=== PATIENT | female | born 1955 | race Caucasian/White ===

== ENCOUNTER 2017-01-11 20:30 | Emergency (ER) | payer OTHER ==
[~2017-01-11] VITALS: Ht 162.6 cm; Wt 55.3 kg
[2017-01-11 20:52] VITALS: BP 151/93
[2017-01-12] MEDS ORDERED: TETANUS-DIPTH-ACEL PERTUSSIS 0.5ML SYRG IM ONE
== END 2017-01-12 00:28 | disposition home or self-care (01) ==
LOC: ER 20:35
DX: S01.01XA Laceration without foreign body of scalp, initial encounter (principal); X58.XXXA Exposure to other specified factors, initial encounter; Y93.01 Activity, walking, marching and hiking; Y99.8 Other external cause status; Y92.89 Other specified places as the place of occurrence of the external cause; Z23 Encounter for immunization; Z88.1 Allergy status to other antibiotic agents; Z88.2 Allergy status to sulfonamides
CPT/HCPCS: 90471; 90715

== ENCOUNTER → 2017-09-22 | Outpatient (CLI) | payer OTHER | END | disposition home or self-care (01) | LOC: LAB 16:29 | PROVIDERS: ATTEND Preventive Medicine Preventive Medicine/Occupational Environmental Medicine | DX: Z02.1 Encounter for pre-employment examination (principal) | CPT/HCPCS: 36415; 86735; 86762; 86765; 87340 ==

== ENCOUNTER 2017-12-02 00:01 | Emergency (ER) | payer OTHER ==
[~2017-12-02] VITALS: Ht 160 cm; Wt 54.4 kg
[2017-12-02 00:51] LABS: Basophils # (auto) 0 uL; Basophils % (auto) 0.4 % (0.0-2.0); Eosinophils # (auto) 0.1 uL; Eosinophils % (auto) 1.5 % (0.0-7.0); Hematocrit 40.6 % (36.0-46.0); Hemoglobin 13.3 g/dL (12.2-16.2); Lymphocytes # (auto) 2.1 uL; Mean Corpuscular Hgb Conc. 32.7 g/dL (32.0-36.0); Mean Corpuscular Volume 91.8 fL (80.0-100.0); Monocytes # (auto) 0.5 uL; Monocytes % (auto) 7.3 % (0.0-12.0); Neutrophils # (auto) 4.7 uL; Neutrophils % (auto) 62.8 % (37.0-80.0); Platelet Count (auto) 263 10^3/uL (140-450); Red Blood Cells 4.43 10^6/uL (4.0-5.20); Red Cell Distribution Width 13.6 % (11.8-14.3); White Blood Cell 7.5 10^3/uL (4.4-10.8)
[2017-12-02 01:05] LABS: INR 0.95 (0.9-1.15); Partial Thromboplastin Time 24.7 sec (22.64-33.71); Prothrombin Time 10.3 sec (9.37-12.3)
[2017-12-02 01:08] LABS: Alanine Aminotransferase 21 U/L (13-56); Albumin 3.7 g/dL (3.4-5.0); Anion Gap 7 (5-15); Aspartate Aminotransferase 18 U/L (15-37); BUN/Creatinine Ratio 16.3; Blood Urea Nitrogen 17 mg/dL (7-18); Calcium 8.5 mg/dL (8.5-10.1); Carbon Dioxide 24 mmol/L (21-32); Chloride 111 mmol/L (98-107); GFR African American 69 mL/min; GFR Non-African American 57 mL/min; Glucose 117 mg/dL (74-106); Magnesium 2.4 mg/dL (1.6-2.6); Potassium 3.6 mmol/L (3.5-5.1); Sodium 142 mmol/L (136-145)
[2017-12-02 01:13] LABS: Alkaline Phosphatase 138 U/L (45-117); Bilirubin, Total 0.3 mg/dL (0.2-1.0); Total Protein 6.8 g/dL (6.4-8.2)
[2017-12-02 04:15] VITALS: BP 125/83
== END 2017-12-02 03:45 | disposition home or self-care (01) ==
LOC: ER 00:02
DX: R42 Dizziness and giddiness (principal); R53.1 Weakness; I10 Essential (primary) hypertension
CPT/HCPCS: 36415; 71045; 80053; 83735; 83880; 84484; 85025; 85610; 85730; 93005; 94761; 99285; J7030

== ENCOUNTER → 2018-09-22 | Outpatient (CLI) | payer BC ==
[2018-09-22 11:53] LABS: Alanine Aminotransferase 26 U/L (13-56); Albumin 4.1 g/dL (3.4-5.0); Anion Gap 7 (5-15); Aspartate Aminotransferase 22 U/L (15-37); BUN/Creatinine Ratio 21.1; Blood Urea Nitrogen 15 mg/dL (7-18); Calcium 9.4 mg/dL (8.5-10.1); Carbon Dioxide 26 mmol/L (21-32); Chloride 108 mmol/L (98-107); GFR African American > 60 mL/min; GFR Non-African American > 60 mL/min; Glucose 90 mg/dL (74-106); Potassium 4.2 mmol/L (3.5-5.1); Sodium 141 mmol/L (136-145)
[2018-09-22 11:57] LABS: Alkaline Phosphatase 152 U/L (45-117); Bilirubin, Total 0.7 mg/dL (0.2-1.0); Cholesterol 228 mg/dL (< 200); HDL Cholesterol 60 mg/dL (40-59); LDL Cholesterol 153 mg/dL (< 100); Total Protein 7.5 g/dL (6.4-8.2); Triglycerides 83 mg/dL (< 150)
== END | disposition home or self-care (01) ==
LOC: LAB 10:50
PROVIDERS: ATTEND Internal Medicine
DX: I10 Essential (primary) hypertension (principal)
CPT/HCPCS: 36415; 80053; 80061

== ENCOUNTER 2019-07-01 21:49 | Emergency (ER) | payer BC ==
[~2019-07-01] VITALS: Ht 162.6 cm; Wt 56.7 kg
[2019-07-02 01:09] VITALS: BP 157/94
[2019-07-02] MEDS ORDERED: MEPERIDINE HCL (50 MG/ML) 1 ML VIAL IM ONE (01:15)
[2019-07-02] MEDS ORDERED: ONDANSETRON ODT 4 MG TAB PO ONE (01:15)
== END 2019-07-02 02:20 | disposition home or self-care (01) ==
LOC: ER 21:49
DX: S82.892A Other fracture of left lower leg, initial encounter for closed fracture (principal); I10 Essential (primary) hypertension; Z88.1 Allergy status to other antibiotic agents; X58.XXXA Exposure to other specified factors, initial encounter; Y93.01 Activity, walking, marching and hiking; Y92.89 Other specified places as the place of occurrence of the external cause; Y99.8 Other external cause status
CPT/HCPCS: 29515; 73610; 73630; 96372; 99283; J2175; Q0162

== ENCOUNTER → 2019-08-10 | Day surgery (SDC) | payer BC ==
[2019-08-08 12:37] LABS: Basophils # (auto) 0 uL; Basophils % (auto) 0.5 % (0.0-2.0); Eosinophils # (auto) 0.2 uL; Eosinophils % (auto) 2.3 % (0.0-7.0); Hemoglobin 14.5 g/dL (12.2-16.2); Lymphocytes # (auto) 2.1 uL; Lymphocytes % (auto) 31.4 % (10.0-50.0); Mean Corpuscular Hemoglobin 31.1 pg (28.0-32.0); Mean Corpuscular Hgb Conc. 33.8 g/dL (32.0-36.0); Mean Corpuscular Volume 91.9 fL (80.0-100.0); Monocytes # (auto) 0.4 uL; Monocytes % (auto) 6.6 % (0.0-12.0); Neutrophils # (auto) 3.9 uL; Neutrophils % (auto) 59.2 % (37.0-80.0); Platelet Count (auto) 245 10^3/uL (140-450); Red Blood Cells 4.68 10^6/uL (4.0-5.20); Red Cell Distribution Width 13.9 % (11.8-14.3); White Blood Cell 6.6 10^3/uL (4.4-10.8)
[2019-08-08 12:48] LABS: Urine Bacteria FEW /hpf (None Seen); Urine Blood Negative /uL (Negative); Urine Specific Gravity 1.015 (1.001-1.035); Urine WBC 9 /hpf (0 - 5)
[2019-08-08 12:53] LABS: INR 0.96 (0.9-1.15); Partial Thromboplastin Time 26.7 sec (23.64-32.05)
[2019-08-08 13:34] LABS: Calcium 9.1 mg/dL (8.5-10.1); Potassium 4.2 mmol/L (3.5-5.1)
[2019-08-08 13:38] LABS: BUN/Creatinine Ratio 18.5; Bilirubin, Total 0.6 mg/dL (0.2-1.0); Total Protein 6.9 g/dL (6.4-8.2)
[~2019-08-10] VITALS: Ht 162.6 cm; Wt 56.7 kg
[~2019-08-10] MED LIST: ALBUAER3 IN; BUPIVACAINE HCL 50 ML ONE; HYDROmorphone HCL 2 MG/ML VL IV PRN; KETOROLAC TROMETH 30 MG/ML 1ML VIAL IV ONE; LIDOCAINE 1% HCL (LOCAL ANESTH.) INJ 20ML MDV ONE; LISI10TA6 PO; MACA500C2 PO; MEPERIDINE HCL (25 MG/ML) 1ML VIAL ONE; METO25TA93 PO; METOCLOPRAMIDE HCL 5MG/ml INJ 2ml VIAL IV PRN; MORPHINE SULFATE 4 MG/ML SYR/VIAL IV PRN; MULT1CAP19 PO; TURM500C3 PO; ceFAZolin 1GM/50ML 50 ML IV ONE; fentaNYL CITRATE 100 MCG/2 ML VL IV PRN
[2019-08-10 18:30] VITALS: BP 134/86
== END | disposition home or self-care (01) ==
LOC: SUR 13:30
PROVIDERS: ATTEND Podiatrist
DX: M25.775 Osteophyte, left foot (principal); Q66.89 Other specified congenital deformities of feet; S92.252D Displaced fracture of navicular [scaphoid] of left foot, subsequent encounter for fracture with routine healing; J45.909 Unspecified asthma, uncomplicated; Z79.899 Other long term (current) drug therapy; Z88.1 Allergy status to other antibiotic agents; Z88.2 Allergy status to sulfonamides; Z91.048 Other nonmedicinal substance allergy status; Z98.890 Other specified postprocedural states; X58.XXXD Exposure to other specified factors, subsequent encounter
CPT/HCPCS: 28116; 36415; 73650; 80053; 81001; 85025; 85610; 85730; 88304; 88311; J0690; J2001; J2175; J3490; 76000

== ENCOUNTER 2020-02-11 15:24 | Emergency (ER) | payer BC ==
[~2020-02-11] VITALS: Ht 162.6 cm; Wt 56.7 kg
[~2020-02-11 15:24] MED LIST changes: -BUPIVACAINE HCL 50 ML ONE; -HYDROmorphone HCL 2 MG/ML VL IV PRN; -KETOROLAC TROMETH 30 MG/ML 1ML VIAL IV ONE; -LIDOCAINE 1% HCL (LOCAL ANESTH.) INJ 20ML MDV ONE; -MEPERIDINE HCL (25 MG/ML) 1ML VIAL ONE; -METOCLOPRAMIDE HCL 5MG/ml INJ 2ml VIAL IV PRN; -MORPHINE SULFATE 4 MG/ML SYR/VIAL IV PRN; -ceFAZolin 1GM/50ML 50 ML IV ONE; -fentaNYL CITRATE 100 MCG/2 ML VL IV PRN
[2020-02-11 15:37] VITALS: BP 167/95
[2020-02-11] MEDS ORDERED: KETOROLAC TROMETH 60MG/2ML VIAL IM ONE (17:00)
[2020-02-11] MEDS ORDERED: cefTRIAXone SOD 1,000 MG VL IM ONE (17:00)
== END 2020-02-11 18:06 | disposition home or self-care (01) ==
LOC: ER 15:24 → EEVIPCON 15:24 → ER 18:06
DX: K04.7 Periapical abscess without sinus (principal); Z88.1 Allergy status to other antibiotic agents; Z79.899 Other long term (current) drug therapy; Z88.2 Allergy status to sulfonamides
CPT/HCPCS: 96372; 99284; J0696; J1885

== ENCOUNTER → 2020-04-26 | Outpatient (CLI) | payer OTHER ==
[~2020-04-26] MED LIST changes: +LISI-648 PO; -LISI10TA6 PO
== END | disposition home or self-care (01) ==
LOC: LAB 09:17
PROVIDERS: ATTEND Nurse Practitioner Family
DX: Z20.828 Contact with and (suspected) exposure to other viral communicable diseases (principal)
CPT/HCPCS: C9803; U0003

== ENCOUNTER 2020-06-03 11:55 | Emergency (ER) | payer BC, OTHER ==
[~2020-06-03] VITALS: Ht 160 cm; Wt 56.7 kg
[2020-06-03 12:40] VITALS: BP 140/79
== END 2020-06-03 13:42 | disposition home or self-care (01) ==
LOC: EEVIPCON 11:55 → ER 11:55
DX: R68.84 Jaw pain (principal); I10 Essential (primary) hypertension

== ENCOUNTER 2020-06-19 19:59 | Emergency (ER) | payer BC ==
[~2020-06-19] VITALS: Ht 160 cm; Wt 56.7 kg
[2020-06-19 21:43] LABS: Basophils # (auto) 0 10 ^3/uL (0-0.2); Basophils % (auto) 0.6 % (0.0-2.0); Eosinophils # (auto) 0.1 10 ^3/uL (0-0.8); Eosinophils % (auto) 1.5 % (0.0-7.0); Hematocrit 40.4 % (36.0-46.0); Hemoglobin 13.5 g/dL (12.2-16.2); Lymphocytes # (auto) 2.5 10 ^3/uL (0.4-5.4); Lymphocytes % (auto) 34.7 % (10.0-50.0); Mean Corpuscular Hemoglobin 30.7 pg (28.0-32.0); Mean Corpuscular Hgb Conc. 33.5 g/dL (32.0-36.0); Mean Corpuscular Volume 91.4 fL (80.0-100.0); Monocytes # (auto) 0.6 10 ^3/uL (0-1.3); Monocytes % (auto) 7.6 % (0.0-12.0); Neutrophils # (auto) 4.1 10 ^3/uL (1.6-8.6); Neutrophils % (auto) 55.6 % (37.0-80.0); Platelet Count (auto) 303 10^3/uL (140-450); Red Blood Cells 4.42 10^6/uL (4.0-5.20); Red Cell Distribution Width 14.4 % (11.8-14.3); White Blood Cell 7.3 10^3/uL (4.4-10.8)
[2020-06-19 22:00] LABS: Alanine Aminotransferase 14 U/L (13-56); Albumin 3.9 g/dL (3.4-5.0); Anion Gap 6 (5-15); Aspartate Aminotransferase 17 U/L (15-37); BUN/Creatinine Ratio 17.4; Blood Urea Nitrogen 12 mg/dL (7-18); Calcium 9.4 mg/dL (8.5-10.1); Carbon Dioxide 27 mmol/L (21-32); Chloride 108 mmol/L (98-107); GFR African American 111 mL/min; GFR Non-African American 91 mL/min; Glucose 94 mg/dL (74-106); Potassium 3.9 mmol/L (3.5-5.1); Sodium 141 mmol/L (136-145)
[2020-06-19 22:05] LABS: Alkaline Phosphatase 148 U/L (45-117); Bilirubin, Total 0.4 mg/dL (0.2-1.0); Total Protein 7.1 g/dL (6.4-8.2)
[2020-06-20 00:01] VITALS: BP 166/93
== END 2020-06-20 00:54 | disposition home or self-care (01) ==
LOC: ER 20:06 → EEVIPCON 20:06 → ER 06-20 00:54
DX: I10 Essential (primary) hypertension (principal)
CPT/HCPCS: 36415; 71045; 80053; 84484; 85025; 93005

== ENCOUNTER → 2020-09-12 | Outpatient (CLI) | payer BC | END | disposition home or self-care (01) | LOC: LAB 12:32 | PROVIDERS: ATTEND Family Medicine | DX: C44.519 Basal cell carcinoma of skin of other part of trunk (principal); L91.9 Hypertrophic disorder of the skin, unspecified ==

== ENCOUNTER → 2020-12-07 | Outpatient (CLI) | payer BC ==
[~2020-12-07] MED LIST changes: +BECL40AE11 IN
[2020-12-07 13:38] LABS: Basophils # (auto) 0 10 ^3/uL (0-0.2); Basophils % (auto) 0.6 % (0.0-2.0); Eosinophils # (auto) 0.1 10 ^3/uL (0-0.8); Eosinophils % (auto) 1.3 % (0.0-7.0); Hematocrit 41.7 % (36.0-46.0); Hemoglobin 13.8 g/dL (12.2-16.2); Lymphocytes # (auto) 2.1 10 ^3/uL (0.4-5.4); Lymphocytes % (auto) 33.8 % (10.0-50.0); Mean Corpuscular Hemoglobin 30.8 pg (28.0-32.0); Mean Corpuscular Hgb Conc. 33.2 g/dL (32.0-36.0); Mean Corpuscular Volume 92.6 fL (80.0-100.0); Monocytes # (auto) 0.4 10 ^3/uL (0-1.3); Monocytes % (auto) 7.1 % (0.0-12.0); Neutrophils # (auto) 3.6 10 ^3/uL (1.6-8.6); Neutrophils % (auto) 57.2 % (37.0-80.0); Platelet Count (auto) 251 10^3/uL (140-450); Red Cell Distribution Width 14.4 % (11.8-14.3); White Blood Cell 6.3 10^3/uL (4.4-10.8)
[2020-12-07 14:00] LABS: Albumin 3.8 g/dL (3.4-5.0); Calcium 8.9 mg/dL (8.5-10.1); Potassium 4.5 mmol/L (3.5-5.1)
[2020-12-07 14:04] LABS: Bilirubin, Total 0.7 mg/dL (0.2-1.0); Total Protein 6.5 g/dL (6.4-8.2)
== END | disposition home or self-care (01) ==
LOC: LAB 12:41
PROVIDERS: ATTEND Internal Medicine
DX: I10 Essential (primary) hypertension (principal); E78.5 Hyperlipidemia, unspecified
CPT/HCPCS: 36415; 80053; 80061; 82306; 83036; 85025

== ENCOUNTER 2020-12-12 06:06 | Inpatient (IN) | payer BC ==
[2020-12-07 13:40] LABS: Urine Bacteria FEW /hpf (None Seen); Urine Blood Negative /uL (Negative); Urine Mucus FEW (None Seen); Urine WBC 4 /hpf (0 - 5)
[2020-12-07 13:52] LABS: Basophils # (auto) 0 10 ^3/uL (0-0.2); Basophils % (auto) 0.5 % (0.0-2.0); Eosinophils # (auto) 0.1 10 ^3/uL (0-0.8); Eosinophils % (auto) 1.8 % (0.0-7.0); Hematocrit 41.6 % (36.0-46.0); Hemoglobin 13.9 g/dL (12.2-16.2); Lymphocytes % (auto) 32.3 % (10.0-50.0); Mean Corpuscular Hemoglobin 30.7 pg (28.0-32.0); Mean Corpuscular Hgb Conc. 33.4 g/dL (32.0-36.0); Mean Corpuscular Volume 92.1 fL (80.0-100.0); Monocytes # (auto) 0.5 10 ^3/uL (0-1.3); Monocytes % (auto) 7.5 % (0.0-12.0); Neutrophils # (auto) 3.6 10 ^3/uL (1.6-8.6); Neutrophils % (auto) 57.9 % (37.0-80.0); Nucleated Red Blood Cells % 0.1 %; Platelet Count (auto) 253 10^3/uL (140-450); Red Blood Cells 4.51 10^6/uL (4.0-5.20); Red Cell Distribution Width 14.1 % (11.8-14.3); White Blood Cell 6.2 10^3/uL (4.4-10.8)
[2020-12-07 14:00] LABS: Albumin 3.9 g/dL (3.4-5.0); Calcium 9.1 mg/dL (8.5-10.1); Potassium 4.5 mmol/L (3.5-5.1)
[2020-12-07 14:01] LABS: INR 0.97 (0.9-1.15)
[2020-12-07 14:05] LABS: BUN/Creatinine Ratio 24.1; Bilirubin, Total 0.7 mg/dL (0.2-1.0); Total Protein 6.7 g/dL (6.4-8.2)
[~2020-12-12] VITALS: Ht 160 cm; Wt 56.5 kg
[~2020-12-12 06:06] MED LIST changes: -MACA500C2 PO
[2020-12-12] MEDS ORDERED: ceFAZolin 1GM/50ML 50 ML IV ONE (06:33)
[2020-12-12] MEDS ORDERED: ceFAZolin 1GM VL ONE (07:15)
[2020-12-12] MEDS ORDERED: LIDOCAINE 1% HCL (LOCAL ANESTH.) INJ 20ML MDV ONE (07:15)
[2020-12-12] MEDS ORDERED: BUPIVACAINE 0.25% INJ 50ML VIAL ONE (07:16)
[2020-12-12] MEDS ORDERED: SUCCINYLCHOLINE CHLORIDE 20 MG/ML 10ML VIAL IV ONE (07:57)
[2020-12-12] MEDS ORDERED: ROCURONIUM 10MG/ML 10ML VIAL IV ONE (07:58)
[2020-12-12] MEDS ORDERED: fentaNYL CITRATE 100 MCG/2 ML VL ONE (08:00)
[2020-12-12] MEDS ORDERED: GLYCOPYRROLATE 0.2 MG/ML 1ML VIAL ONE (08:00)
[2020-12-12] MEDS ORDERED: PROPOFOL 10 MG/ML 20 ML IV ONE (08:00)
[2020-12-12] MEDS ORDERED: LIDOCAINE 1% INJ PF 5ML AMP ONE (08:00)
[2020-12-12] MEDS ORDERED: ONDANSETRON HCL 4 MG/2 ML VIAL ONE (08:00)
[2020-12-12] MEDS ORDERED: KETOROLAC TROMETH 30 MG/ML 1ML VIAL ONE (08:00)
[2020-12-12] MEDS ORDERED: HYDROmorphone HCL 2 MG/ML VL ONE (08:00)
[2020-12-12] MEDS ORDERED: MIDAZOLAM HCL 1MG/1ML-2 ML VIAL ONE (08:00)
[2020-12-12] MEDS ORDERED: ePHEDrine SULFATE 50 MG/ML AMP ONE (08:01)
[2020-12-12] MEDS ORDERED: PHENYLEPHRINE HCL 10 MG/ML VL ONE (08:01)
[2020-12-12] MEDS ORDERED: HYDROmorphone HCL 2 MG/ML VL IV PRN (09:30)
[2020-12-12] MEDS ORDERED: ONDANSETRON HCL 4 MG/2 ML VIAL IV PRN ×2 (09:30→14:15)
[2020-12-12] MEDS ORDERED: LABETALOL HCL 5 MG/ML ML 20ML VIAL IV ONE (12:57)
[2020-12-12] MEDS ORDERED: LABETALOL HCL 5 MG/ML 4ML SYRINGE IV PRN (13:00)
[2020-12-12] MEDS ORDERED: hydrALAZINE HCL 20 MG/ML VL IV PRN (13:00)
[2020-12-12] MEDS ORDERED: ALBUTEROL SULF 2.5 MG/0.5ML(0.5%) NEB SOLN NEB PRN (14:15)
[2020-12-12] MEDS ORDERED: traMADol HCL 50 MG TAB PO PRN (14:15)
[2020-12-12] MEDS ORDERED: ACETAMINOPHEN 500 MG TAB PO PRN (14:15)
[2020-12-12] MEDS ORDERED: LACTULOSE 20Gm/30ML SOLN PO PRN (14:15)
[2020-12-12] MEDS ORDERED: LORazepam 0.5 MG TAB PO PRN (14:15)
[2020-12-12] MEDS ORDERED: NITROGLYCERIN 0.4 MG SL TAB SL PRN (14:15)
[2020-12-12] MEDS ORDERED: MORPHINE SULF INJ 2 MG/ML SYRINGE 1ML IV PRN ×2 (14:15)
[2020-12-12] MEDS ORDERED: cefTRIAXone 1GM/50ML D5W 50 ML IV ONE (14:15)
[2020-12-12] MEDS: LABETALOL HCL 5 MG/ML ML 20ML VIAL IV PRN (14:32)
[2020-12-12] MEDS: ASPirin 81 mg TAB PO SCH (15:00)
[2020-12-12 18:17] LABS: Urine Bacteria NONE SEEN /hpf (None Seen); Urine Blood Negative /uL (Negative); Urine Specific Gravity 1.008 (1.001-1.035); Urine WBC <1 /hpf (0 - 5)
[2020-12-12 18:18] VITALS: BP 144/83
[2020-12-12] MEDS ORDERED: PANT40T PO (19:28)
[2020-12-12] MEDS ORDERED: B-COCAP34 OR (19:28)
[2020-12-12 20:51] VITALS: BP 144/83
[2020-12-12] MEDS: LISINOPRIL 10 MG TAB PO SCH (21:16)
[2020-12-12 22:00] VITALS: BP 140/75
[2020-12-12] MEDS ORDERED: ATORVASTATIN 20 MG TAB PO SCH (22:00)
[2020-12-12] MEDS ORDERED: FAMOTIDINE 20 MG TAB PO SCH (22:00)
[2020-12-12] MEDS: ATORVASTATIN 20 MG TAB PO SCH (22:30)
[2020-12-12] MEDS ORDERED: LORazepam 2MG/ML-1ML VIAL IV PRN (22:30)
[2020-12-12] MEDS: BUDESONIDE (INHALATION) 180 MCG IH IN SCH (22:59)
[2020-12-13 05:00] VITALS: BP 136/77
[2020-12-13 08:00] VITALS: BP 141/80
[2020-12-13 09:00] VITALS: BP 141/80
[2020-12-13] MEDS ORDERED: cefTRIAXone 1GM/50ML D5W 50 ML IV SCH (09:00)
[2020-12-13] MEDS: METOPROLOL TARTRATE 25 MG TAB PO SCH (09:13)
[2020-12-13] MEDS: ASPirin 81 mg TAB PO SCH (09:14)
[2020-12-13] MEDS: LISINOPRIL 10 MG TAB PO SCH ×2 (09:14→21:28)
[2020-12-13] MEDS: ENOXAPARIN SOD 40 MG/0.4 ML SYRINGE SC SCH (09:15)
[2020-12-13] MEDS: BUDESONIDE (INHALATION) 180 MCG IH IN SCH ×2 (10:15→22:12)
[2020-12-13] MEDS ORDERED: DexAMETHasone SOD PHOS 10MG/1ML VIAL INJ IV ONE (10:42)
[2020-12-13] MEDS ORDERED: NEOSTIGMINE 1 MG/ML INJ (10mg/10ML VIAL) IV ONE (10:42)
[2020-12-13 13:00] VITALS: BP 135/85
[2020-12-13 17:15] VITALS: BP 156/92
[2020-12-13] MEDS: ATORVASTATIN 20 MG TAB PO SCH (21:27)
[2020-12-13 22:00] VITALS: BP 150/89
[2020-12-13] MEDS ORDERED: FAMOTIDINE 20 MG TAB PO SCH (22:00)
[2020-12-13] MEDS: LABETALOL HCL 5 MG/ML ML 20ML VIAL IV PRN (22:29)
[2020-12-14 05:00] VITALS: BP 157/92
[2020-12-14] MEDS: LABETALOL HCL 5 MG/ML ML 20ML VIAL IV PRN (05:10)
[2020-12-14] MEDS: METOPROLOL TARTRATE 25 MG TAB PO SCH (08:40)
[2020-12-14] MEDS: ASPirin 81 mg TAB PO SCH (08:41)
[2020-12-14] MEDS: LISINOPRIL 10 MG TAB PO SCH (08:42)
[2020-12-14] MEDS: ENOXAPARIN SOD 40 MG/0.4 ML SYRINGE SC SCH (08:42)
[2020-12-14 09:00] VITALS: BP 163/85
[2020-12-14] MEDS ORDERED: ASPI1CHW15 PO (10:20)
[2020-12-14] MEDS ORDERED: ATOR20TA50 PO (10:20)
[2020-12-14] MEDS: BUDESONIDE (INHALATION) 180 MCG IH IN SCH (11:03)
[2020-12-14 11:35] VITALS: BP 140/80
[2020-12-14 12:44] VITALS: BP 141/93
== END 2020-12-14 13:45 | disposition home or self-care (01) | DRG 579 ==
LOC: SUR 06:06 → TELE 14:05 → TELE-EAST 17:39
PROVIDERS: ADMIT Internal Medicine; ATTEND Internal Medicine
PROC: 0HB9XZZ Excision of Perineum Skin, External Approach (ICD-10-PCS; principal; 2020-12-12 08:03)
DX: C44.91 Basal cell carcinoma of skin, unspecified (principal); U07.1 COVID-19; M54.10 Radiculopathy, site unspecified; F17.200 Nicotine dependence, unspecified, uncomplicated; I10 Essential (primary) hypertension; J44.9 Chronic obstructive pulmonary disease, unspecified; R53.1 Weakness; Z82.49 Family history of ischemic heart disease and other diseases of the circulatory system; Z85.828 Personal history of other malignant neoplasm of skin; Z79.899 Other long term (current) drug therapy; Z79.82 Long term (current) use of aspirin; Z88.2 Allergy status to sulfonamides; Z88.1 Allergy status to other antibiotic agents
CPT/HCPCS: 36415; 70450; 80053; 81001; 85025; 85610; 85652; 85730; 87086; 93306; 93886; 94640; G0378; J0330; J0690; J0696; J1100; J1885; J2001; J2250; J2405; J2704; J3490

== ENCOUNTER → 2020-12-25 | Outpatient (CLI) | payer BC, OTHER ==
[~2020-12-25] MED LIST changes: +ASPI1CHW15 PO; +ATOR20TA50 PO; +B-COCAP34 OR; -LISI-648 PO; +LISI-716 PO; +PANT40T PO
== END | disposition home or self-care (01) ==
LOC: XYW 10:02
PROVIDERS: ATTEND Internal Medicine
DX: M47.813 Spondylosis without myelopathy or radiculopathy, cervicothoracic region (principal); M50.21 Other cervical disc displacement, high cervical region; M41.83 Other forms of scoliosis, cervicothoracic region; M43.12 Spondylolisthesis, cervical region; M47.812 Spondylosis without myelopathy or radiculopathy, cervical region; M48.02 Spinal stenosis, cervical region; R53.1 Weakness; R20.0 Anesthesia of skin
CPT/HCPCS: 72141

== ENCOUNTER 2025-02-23 11:02 | Emergency (ER) | payer BC, OTHER ==
[~2025-02-23] VITALS: Ht 160 cm; Wt 51.5 kg
[~2025-02-23 11:02] MED LIST changes: +ASPI-736 PO; -ASPI1CHW15 PO; -LISI-716 PO; +LISI10TA34 PO
--- NOTE | 2025-02-23 11:43 | ED.PDOC ---
History of Present Illness HPI Comments 69 y/o F, BIBA, presents to the ED for CC of syncope. EMS reports, patient had a witnessed near syncopal episode lasting approximately x20 minutes. Patient relays, she began to feel lightheaded when she began to fall down, bystanders brought a chair to her and she sat down. Patient comments, that she spaced out for approximately x20 minutes. Patient denies nausea, vomiting, headache, dizziness, or injury. No other symptoms or modifying factors present at this time. Chief Complaint: Syncope Time Seen by MD: 11:15 Primary Care Provider: UNKNOWN Reviewed Notes: Nurses Notes, Medications, Allergies Allergies: Coded Allergies: Azithromycin (Verified Allergy, Unknown, 08/08/19) Erythromycin (Verified Allergy, Unknown, 08/08/19) Sulfa Antibiotics (Verified Allergy, Unknown, 08/08/19) Uncoded Allergies: TAPE (Allergy, Unknown, 01/11/17) Home Meds Active Scripts Atorvastatin Calcium (ATORVASTATIN CALCIUM) 20 Mg Tab, 20 MG PO HS for 90 Days, #90 TAB Prov:CONNIE SCOTT MD 12/14/20 Aspirin (Aspirin Low Strength) 81 Mg Chw, 81 MG PO DAILY for 90 Days, #90 TAB Prov:CONNIE SCOTT MD 12/14/20 Reported Medications Pantoprazole Sodium Sesquihydr (Pantoprazole Sodium) 40 Mg Tab, 40 MG PO, TAB 12/12/20 B-Complex Vitamins (B Complex) Cap, 1 OR, CAP 12/12/20 Beclomethasone Dipropionate (Qvar Redihaler) 40 Mcg/Act Aer, 40 MCG IN DAILY, AER 12/07/20 Albuterol Sulfate (VENTOLIN MDI) 90 Mcg Ih, 2 PUFF IN PRN, INH 08/08/19 Curcuma Longa (Turmeric) Extra (TURMERIC) 500 Mg Cap, 500 MG PO DAILY, CAP 08/08/19 Multiple Minerals W/ Vitamins (Bone Essentials) 1 Cap Cap, 1 CAP PO DAILY, CAP 08/08/19 Lisinopril (Lisinopril) 10 Mg Tab, 10 MG PO DAILY for 30 Days, MG 08/08/19 Metoprolol Succinate (Metoprolol Succinate Er) 25 Mg Tab, 0.5 TAB PO DAILY for 30 Days, MG 08/08/19 Information Source: Patient Mode of Arrival: EMS Severity: Moderate Timing: Minutes Duration: Since onset Prehospital treatment: None Past Medical History PAST MEDICAL HISTORY: HTN Surgical History: Tonsillectomy COORDINATOR OF ONLINE PROGRAMS History: No Pertinent COORDINATOR OF ONLINE PROGRAMS History Family History Family History: Reviewed,noncontributory to illness Social History Smoker: Non-Smoker Alcohol: Denies ETOH Use Drugs: Denies Drug Use Lives In: Home Constitutional: denies: chills, diaphoresis, fatigue, fever, malaise, sweats, weakness, others EENTM: denies: blurred vision, double vision, ear bleeding, ear discharge, ear drainage, ear pain, ear ringing, eye pain, eye redness, hearing loss, mouth pain, mouth swelling, nasal discharge, nose bleeding, nose congestion, nose pain, photophobia, tearing, throat pain, throat swelling, voice changes, others Respiratory: denies: cough, hemoptysis, orthopnea, SOB at rest, shortness of breath, SOB with excertion, stridor, wheezing, others Cardiovascular: denies: chest pain, dizzy spells, diaphoresis, Dyspnea on exertion, edema, irregular heart beat, left arm pain, lightheadedness, palpitations, PND, syncope, others Gastrointestinal: denies: abdomen distended, abdominal pain, blood streaked bowels, constipated, diarrhea, dysphagia, difficulty swallowing, hematemesis, melena, nausea, poor appetite, poor fluid intake, rectal bleeding, rectal pain, vomiting, others Genitourinary: denies: abnormal vagina bleeding, burning, dyspareunia, dysuria, flank pain, frequency, hematuria, incontinence, pain, , vagina discha rge, urgency, others Neurological: reports: others (LIGHTHEADEDNESS); denies: dizziness, fainting, headache, left sided numbness, left sided weakness, numbness, paresthesia, pre- existing deficit, right sided numbness, right sided weakness, seizure, speech problems, tingling, tremors, weakness Musculoskeletal: denies: back pain, gout, joint pain, joint swelling, muscle pain, muscle stiffness, neck pain, others Integumetry: denies: bruises, change in color, change in hair/nails, dryness, laceration, lesions, lumps, rash, wounds, others Allergic/Immunocompromised: denies: Difficulty Healing, Frequent Infections, Hives, Itching, others Hematologic/Lymphatic: denies: anemia, blood clots, easy bleeding, easy bruising, swollen glands, others Endocrine: denies: excessive hunger, excessive sweating, excessive thirst, excessive urination, flushing, intolerance to cold, intolerance to heat, unexplained weight gain, unexplained weight loss, others Psychiatric: denies: anxiety, bipolar disorder, depression, hopeless, panic disorder, schizophrenia, sleepless, suicidal, others All Other Systems: Reviewed and Negative Physical Exam General Appearance: Moderate Distress HEENT: Normal ENT Inspection, Pharynx Normal, TMs Normal Neck: Full Range of Motion, Non-Tender, Normal, Normal Inspection Respiratory: Chest Non-Tender, Lungs Clear, No Accessory Muscle Use, No Respiratory Distress, Normal Breath Sounds Cardiovascular: No Edema, No JVD, No Murmur, No Gallop, Normal Peripheral Pulses, Regular Rate/Rhythm Breast Exam: Deferred Gastrointestinal: No Organomegaly, Non Tender, No Pulsatile Mass, Normal Bowel Sounds, Soft Genitalia: Deferred Pelvic: Deferred Rectal: Deferred Extremities: No calf tenderness, Normal capillary refill, Normal inspection, Normal range of motion, Non-tender, No pedal edema Musculoskeletal : Apperance: Normal Neurologic: Alert, administrative services director II-XII nml as Tested, No Motor Deficits, Normal Affect, Normal Mood, No Sensory Deficits Cerebellar Function: Normal Reflexes: Normal Skin: Dry, Normal Color, Warm Peripheral Pulses: 3+ Radial (R), 3+ Radial (L) Lymphatic: No Adenopathy Was a procedure done? Was a procedure done?: No Differential Dx Considerations may include: HYPOTENSION, HYPOGLYCEMIA, ELECTROLYTE IMBALANCE X-Ray, Labs, Meds, VS Vital Signs Date Time Temp Pulse Resp B/P (MAP) Pulse Ox O2 Delivery O2 Flow Rate FiO2 02/23/25 12:26 98.5 77 16 120/73 (89) 97 98.5 02/23/25 12:26 77 16 97 Room Air 02/23/25 11:06 70 02/23/25 11:05 99.2 73 15 111/58 (75) 97 99.2 Lab Test 02/23/25 11:40 Range/Units Troponin I High Sensitivity < 3 L </=34 ng/L [address] [address] Ph: [phone] DIAGNOSTIC IMAGING Diagnostic Imaging Report : [id number] Signed PATIENT: NIA SUTHERLAND ACCT: [id number] UNIT: [id number] : 1955 LOC: ER ROOM / BED: / AGE / SEX: 69 / F ADM STATUS: REG ER SERVICE 25 ORDERING PHYSICIAN: KIANNA PRETTY MD PROCEDURE(s): HWOCT - HEAD WITHOUT CONTRAST REASON: syncope ORDER NUMBER(s): [id number], ACCESSION NUMBER(s): [id number] CT HEAD WITHOUT CONTRAST Indication: syncope EXAM DATE: 02/23/2025 11:41 AM COMPARISON: HEAD WITHOUT CONTRAST on DOS: 12/13/20, 12/12/2020 TECHNIQUE: CT of the head without intravenous contrast. RADIATION DOSE: CTDIvol: 58.13 mGy, DLP: 1261.68 mGy*cm FINDINGS: There is no intracranial hemorrhage. There is no extra-axial fluid, mass, mass effect or midline shift. The ventricles are midline and normal in size. Basilar cisterns are patent. Moderate to advanced periventricular and subcortical white matter chronic microvascular ischemic changes. Falcine, tentorial calcifications. Mild global cerebral volume loss. Right maxillary sinus mucosal retention cyst/ polyp measuring 2.1 cm.. Imaged portion of the orbits are unremarkable. IMPRESSION: No intracranial hemorrhage or mass effect. Moderate to advanced chronic microvascular ischemic changes. Right maxillary sinus mucosal retention cyst/ polyp measuring 2.1 cm that is hyperdense, also present on prior examination. Recommend ENT consultation for further management. ATED BY: TOD CASAS MD DICTATED DATE/TIME: 02/23/251216 SIGNED BY: TOD CASAS MD SIGNED DATE/TIME: 02/23/251216 CC: Patient alert. Possible syncope. Vitals stable. Ambulating. Answering all questions. Heart rate within normal limits. Saturation pristine on room air. Cardiac marker within normal limits. EKG within normal limits. Good skin color. No sign of sepsis. CT of the head does not show any acute process. Explained to the patient. Was told to follow up with her primary care physician. Was told to come back if there is any problem. Time of 1ST Reevaluation: 11:45 Reevaluation 1ST: Improved Patient Education/Counseling: Diagnosis, Treatment Family Education/Counseling: No Family Present SEPSIS Sepsis Screen Date sepsis recognized/suspect: Feb 23, 2025 Time Sepsis recognized/suspect: 1100 Recent Procedure: No On Antibiotic Therapy: No Respiratory Rate >20: No Heart Rate >90: No Temp<36 C (96.8 F) or >38.3 C: No SBP <90 or MAP <65 mmHG: No New Acute Mental Status Change: No Is the patient on CPAP, BIPAP,: No Physician Orders Head Without Contrast (02/23/25 11:26) Electrocardigram (02/23/25 11:35) Vital Signs Date Time Temp Pulse Resp B/P (MAP) Pulse Ox O2 Delivery O2 Flow Rate FiO2 02/23/25 12: 98.5 77 16 120/73 (89) 97 98.5 02/23/25 12:26 77 16 97 Room Air 02/23/25 11:06 70 02/23/25 11:05 99.2 73 15 111/58 (75) 97 99.2 Departure 1 Departure Time of Disposition: 11:50 Impression: Primary Impression: Near syncope Disposition: 01 HOME / SELF CARE / HOMELESS Condition: Good Discharged With: Self Critical Care Note Critical Care Time?: No Stability Stability form required: No Heart Score Heart Score: Heart Score Response (Comments) Value History Slightly Suspicious 0 EKG Normal 0 Age >65 2 Risk Factors 1 or 2 risk factors 1 Troponin Normal limit 0 Total 3 I personally scribed for KIANNA PRETTY MD ([email or web address]) on 02/23/25 at 11:43. Electronically submitted by Kim Khan ([email or web address]). I personally scribed for KIANNA PRETTY MD ([email or web address]) on 02/23/25 at 13:26. Electronically submitted by Kim Khan ([email or web address]). KIANNA PRETTY MD Feb 23, 2025 11:43
--- NOTE | 2025-02-23 12:19 | DVH ---
CT HEAD WITHOUT CONTRAST Indication: syncope EXAM DATE: 02/23/2025 11:41 AM COMPARISON: HEAD WITHOUT CONTRAST on DOS: 12/13/20, 12/12/2020 TECHNIQUE: CT of the head without intravenous contrast. RADIATION DOSE: CTDIvol: 58.13 mGy, DLP: 1261.68 mGy*cm FINDINGS: There is no intracranial hemorrhage. There is no extra-axial fluid, mass, mass effect or midline shif t. The ventricles are midline and normal in size. Basilar cisterns are patent. Moderate to advanced p eriventricular and subcortical white matter chronic microvascular ischemic changes. Falcine, tentoria l calcifications. Mild global cerebral volume loss. Right maxillary sinus mucosal retention cyst/ polyp measuring 2.1 cm.. Imaged portion of the orbits a re unremarkable. IMPRESSION: No intracranial hemorrhage or mass effect. Moderate to advanced chronic microvascular ischemic changes. Right maxillary sinus mucosal retention cyst/ polyp measuring 2.1 cm that is hyperdense, also present on prior examination. Recommend ENT consultation for further management.
[2025-02-23 14:38] VITALS: BP 126/63; PULSE 72; RESP 18; TEMP 97.8; O2SAT 97
--- NOTE | 2025-03-01 08:34 | ECG ---
[facility] Test Date: 2025-02-23 Test Time: 11:06:46 Pat Name: NIA SUTHERLAND Department: ED Room: Gender: F Route Supervisor: navya : 1955 Requested By: KIANNA PRETTY Order Number: [id number] Reading MD: Ed Griffin Measurements Intervals [place] Rate: 70 P: 35 UT: 147 QRS: 48 QRSD: 89 T: 40 QT: 404 QTc: 436 Interpretive Statements Sinus rhythm Baseline wander in lead(s) V4 Electronically Signed On 03-03-2025 8:50:50 PDT by Ed Griffin Please click the below link to view image of tracing.
== END 2025-02-23 14:48 | disposition home or self-care (01) ==
LOC: EEVIPCON 11:02 → EDBD 11:02 → ER 11:02
DX: R55 Syncope and collapse (principal); I10 Essential (primary) hypertension; Z79.82 Long term (current) use of aspirin; Z79.899 Other long term (current) drug therapy; Z90.89 Acquired absence of other organs; Z88.1 Allergy status to other antibiotic agents; Z88.2 Allergy status to sulfonamides; Z88.8 Allergy status to other drugs, medicaments and biological substances
CPT/HCPCS: 36415; 70450; 82947; 84484; 93005